=== PATIENT | male | born 1960 | race Caucasian/White ===

== ENCOUNTER 2018-06-08 10:49 | Emergency (ER) | payer MEDICAID, SELFPAY ==
[2018-06-08 11:14] VITALS: BP 132/82; PULSE 79; RESP 18; TEMP 36.7; O2SAT 97
--- NOTE | 2018-06-08 11:38 | W.ED.GENAD ---
Discharge Plan Disposition Patient Disposition: HOME Condition: Fair Discharge Details Chief Complaint: Orthopedic Clinical Impression: Radial collateral ligament sprain Primary Care Provider: WAYNE KIRBY ED Provider: Selin Ross Home Meds and New Rx's Prescriptions: Continue ibuprofen 800 MG tablet 800 mg PO BID RF: 0 omeprazole magnesium [Prilosec OTC] 20 MG tablet,delayed release (DR/EC) 40 mg PO DAILY RF: 0 hydrocodone-acetaminophen 1 EACH tablet 1 ea PO Q4H PRN PRNQty: 10 RF: 0 morphine 15 MG tablet 15 mg PO TID RF: 0 lisinopril 5 mg Tablet RF: 0 Discharge Instructions Instructions: Finger Sprain (ED) Additional Instructions: Encourage rest, ice, elevation. Please continue to pearl tape your fingers until evaluated by orthopedics. Please call to schedule follow up appointment. If you develop new/worsening symptoms please seek care urgently once again. Avoid heavy lifting with this hand. Referrals: Avelino Walter MD [ [facility] STAFF PHYSICIAN] - ([phone]) Discharge Data Discharge Date/Time-TO BE ENTERED AT DEPARTURE: 06/08/18 13:28 Medical Decision Making Patient is a 58 year old RHD male, presenting today with c/c of diminished ROM and pain in the middle finger right digit. States that this began 3 days ago after pushing on his plow frame. He denies any fall or known trauma. History of CTR to affected hand about 10 years ago. Denies altered sesnation. Notes that he is unable to move my finger to the right. On exam, patient has difficulty moving digit to the radial side. No laxity at the DIP or PIP joint, unable to press against resistance radially from the MCP joint. Is able to make a fist but has difficulty doing so, appears to need to realign his digits to have success with this. 2 point intact. Ligamentously intact with flexion and extension. Pain is primarily at the base of the 3rd metacarpal. Will obtain XR to evaluate for possible fracture. XR reviewed by myself with no acute bony abnormality noted. Consulted with Dr. Walter regarding ligamentous injury. He advised pearl tape and follow up with orthopedics in 1-2 weeks. Radiologist reviewed the patient's x-ray and advised that there is some abnormalities in the wrist but nothing acute. No acute fracture. Discussed the findings with the patient. He is not endorsing any wrist pain. No snuffbox tenderness. At this point, we will follow Dr. Walter's recommendation and pearl tape the patient. He has been placed on the fracture list. I encouraged rest, ice, elevation. Tylenol and/or ibuprofen as needed for discomfort. We discussed new/worsening symptoms and when to seek care urgently once again. All of his questions and concerns were addressed and he is in agreement with this plan. HPI General Mode of arrival: ambulatory. Date/Time Provider Initiated Documentation: 06/08/18 11:21. Limitations to Documentation: no limitations. Information obtained by: patient. History of Present Illness 58 year old M presents to the emergency department with the chief complaint of right middle finger pain and diminished ROM, described as moderate, Quality is described as aching, and is localized to the right and upper extremity. Patient reports no radiation. Patient started experiencing this day(s) (3) and it has been constant. No relieving factors improve symptom(s), No exacerbating factors reported . Patient notes weakness (in affected hand); denies cough, fever/chills and rash. Patient did receive the following treatments prior to arrival, none Related Data Home Medications Medication Instructions Recorded Confirmed ibuprofen 800 mg PO BID 12/07/12 06/08/18 omeprazole magnesium [Prilosec OTC] 40 mg PO DAILY 12/07/12 06/08/18 hydrocodone-acetaminophen 1 ea PO Q4H PRN PRN #10 tablet 07/09/13 06/08/18 morphine 15 mg PO TID 12/10/15 06/08/18 lisinopril 06/08/18 Previous Rx's Medication Instructions Recorded hydrocodone-acetaminophen 1 ea PO Q4H PRN PRN #10 tablet 07/09/13 Allergies Allergy/AdvReac Type Severity Reaction Status Date / Time gabapentin AdvReac Intermediate went Unverified 06/08/18 11:18 crazy on it General Stated Complaint: Orthopedic RADHA: 4 Review of Systems Constitutional Reports as per HPI, Denies chills, Denies fever(s), Denies headache(s) and Denies weakness ENT Denies headache(s) Cardiovascular Reports as per HPI Respiratory Reports as per HPI and Denies cough Musculoskeletal Reports as per HPI and Denies tingling Integumentary/Breasts Reports as per HPI, Denies rash and Denies wounds Neurologic Denies headache(s), Denies tingling and Denies weakness [facility] Social History Smoking/Tobacco Use Status: Former Tobacco Use Exam Const General: cooperative, healthy appearing, comfortable, no acute distress, well developed and well groomed Nutritional Appearance: average body habitus and well nourished Orientation: alert and awake Resp Effort & Inspection: normal respiratory effort, able to speak in complete sentences and no respiratory distress Cardio Rate: regular rate Rhythm: regular rhythm Skin General skin exam: no rashes or lesions noted Lesions: no lesions Rashes: no rashes Trauma: no lacerations or abrasions Neuro General: alert and awake Cognition: normal cognition Speech: speech normal Gait: normal gait Motor: tone not normal throughout (Limited range of motion as below) Sensory Exam: no sensory deficits noted Extrem Right upper extremity: normal capillary refill and no joint enlargement; abnormal to inspection (Examination Cecy 70 is significant for ulnar deviation of the middle finger compared to that of the contralateral side. He is unable to deviate radially, no strength in this direction of the middle finger. Full flexion. Full extension. Weakness seems to be at the MCP joint however the patien) and ROM limited Psych Appearance: grossly normal and well kempt Mental Status: mental status grossly normal Speech and Movement: speech and movement normal Course Vital Signs Temperature 36.7 C 06/08/18 11:14 Pulse 79 06/08/18 11:14 Respiratory Rate 18 06/08/18 11:14 Blood Pressure 132/82 06/08/18 11:14 Pulse Oximetry 97 06/08/18 11:14 Temperature 36.7 C 06/08/18 11:14 Temperature Source Skin 06/08/18 11:14 Pulse 79 06/08/18 11:14 Respiratory Rate 18 06/08/18 11:14 Respiratory Effort 06/08/18 11:17 Blood Pressure 132/82 06/08/18 11:14 Blood Pressure Position Sitting 06/08/18 11:14 Pulse Oximetry 97 06/08/18 11:14 Pain Level 2 06/08/18 11:17
--- NOTE | 2018-06-08 11:45 | ED.GENADUL_ITS ---
Discharge Plan Disposition Patient Disposition: HOME Condition: Fair Discharge Details Chief Complaint: Orthopedic Clinical Impression: Radial collateral ligament sprain Primary Care Provider: WAYNE KIRBY ED Provider: Selin Ross Home Meds and New Rx's Prescriptions: Continue ibuprofen 800 MG tablet 800 mg PO BID RF: 0 omeprazole magnesium [Prilosec OTC] 20 MG tablet,delayed release (DR/EC) 40 mg PO DAILY RF: 0 hydrocodone-acetaminophen 1 EACH tablet 1 ea PO Q4H PRN PRNQty: 10 RF: 0 morphine 15 MG tablet 15 mg PO TID RF: 0 lisinopril 5 mg Tablet RF: 0 Discharge Instructions Instructions: Finger Sprain (ED) Additional Instructions: Encourage rest, ice, elevation. Please continue to pearl tape your fingers until evaluated by orthopedics. Please call to schedule follow up appointment. If you develop new/worsening symptoms please seek care urgently once again. Avoid heavy lifting with this hand. Referrals: Avelino Walter MD [ [facility] STAFF PHYSICIAN] - ([phone]) Discharge Data Discharge Date/Time-TO BE ENTERED AT DEPARTURE: 06/08/18 13:28 Medical Decision Making Patient is a 58 year old RHD male, presenting today with c/c of diminished ROM and pain in the middle finger right digit. States that this began 3 days ago after pushing on his plow frame. He denies any fall or known trauma. History of CTR to affected hand about 10 years ago. Denies altered sesnation. Notes that he is unable to move my finger to the right. On exam, patient has difficulty moving digit to the radial side. No laxity at the DIP or PIP joint, unable to press against resistance radially from the MCP joint. Is able to make a fist but has difficulty doing so, appears to need to realign his digits to have success with this. 2 point intact. Ligamentously intact with flexion and extension. Pain is primarily at the base of the 3rd metacarpal. Will obtain XR to evaluate for possible fracture. XR reviewed by myself with no acute bony abnormality noted. Consulted with Dr. Walter regarding ligamentous injury. He advised pearl tape and follow up with orthopedics in 1-2 weeks. Radiologist reviewed the patient's x-ray and advised that there is some abnormalities in the wrist but nothing acute. No acute fracture. Discussed the findings with the patient. He is not endorsing any wrist pain. No snuffbox tenderness. At this point, we will follow Dr. Walter's recommendation and pearl tape the patient. He has been placed on the fracture list. I encouraged rest, ice, elevation. Tylenol and/or ibuprofen as needed for discomfort. We discussed new/worsening symptoms and when to seek care urgently once again. All of his questions and concerns were addressed and he is in agreement with this plan. HPI General Mode of arrival: ambulatory . Date/Time Provider Initiated Documentation: 06/08/18 11:21 . Limitations to Documentation: no limitations . Information obtained by: patient . History of Present Illness 58 year old M presents to the emergency department with the chief complaint of right middle finger pain and diminished ROM, described as moderate, Quality is described as aching, and is localized to the right and upper extremity. Patient reports no radiation. Patient started experiencing this day(s) (3) and it has been constant. No relieving factors improve symptom(s), No exacerbating factors reported . Patient notes weakness (in affected hand); denies cough, fever/chills and rash. Patient did receive the following treatments prior to arrival, none Related Data Home Medications Medication Instructions Recorded Confirmed ibuprofen 800 mg PO BID 12/07/12 06/08/18 omeprazole magnesium [Prilosec OTC] 40 mg PO DAILY 12/07/12 06/08/18 hydrocodone-acetaminophen 1 ea PO Q4H PRN PRN #10 tablet 07/09/13 06/08/18 morphine 15 mg PO TID 12/10/15 06/08/18 lisinopril 06/08/18 Previous Rx's Medication Instructions Recorded hydrocodone-acetaminophen 1 ea PO Q4H PRN PRN #10 tablet 07/09/13 Allergies Allergy/AdvReac Type Severity Reaction Status Date / Time gabapentin AdvReac Intermediate went Unverified 06/08/18 11:18 crazy on it General Stated Complaint: Orthopedic RADHA: 4 Review of Systems Constitutional Reports as per HPI, Denies chills, Denies fever(s), Denies headache(s) and Denies weakness ENT Denies headache(s) Cardiovascular Reports as per HPI Respiratory Reports as per HPI and Denies cough Musculoskeletal Reports as per HPI and Denies tingling Integumentary/Breasts Reports as per HPI, Denies rash and Denies wounds Neurologic Denies headache(s), Denies tingling and Denies weakness [facility] Social History Smoking/Tobacco Use Status: Former Tobacco Use Exam Const General: cooperative, healthy appearing, comfortable, no acute distress, well developed and well groomed Nutritional Appearance: average body habitus and well nourished Orientation: alert and awake Resp Effort & Inspection: normal respiratory effort, able to speak in complete sentences and no respiratory distress Cardio Rate: regular rate Rhythm: regular rhythm Skin General skin exam: no rashes or lesions noted Lesions: no lesions Rashes: no rashes Trauma: no lacerations or abrasions Neuro General: alert and awake Cognition: normal cognition Speech: speech normal Gait: normal gait Motor: tone not normal throughout (Limited range of motion as below) Sensory Exam: no sensory deficits noted Extrem Right upper extremity: normal capillary refill and no joint enlargement; abnormal to inspection (Examination Cecy 70 is significant for ulnar deviation of the middle finger compared to that of the contralateral side. He is unable to deviate radially, no strength in this direction of the middle finger. Full flexion. Full extension. Weakness seems to be at the MCP joint however the patien) and ROM limited Psych Appearance: grossly normal and well kempt Mental Status: mental status grossly normal Speech and Movement: speech and movement normal Course Vital Signs Temperature 36.7 C 06/08/18 11:14 Pulse 79 06/08/18 11:14 Respiratory Rate 18 06/08/18 11:14 Blood Pressure 132/82 06/08/18 11:14 Pulse Oximetry 97 06/08/18 11:14 Temperature 36.7 C 06/08/18 11:14 Temperature Source Skin 06/08/18 11:14 Pulse 79 06/08/18 11:14 Respiratory Rate 18 06/08/18 11:14 Respiratory Effort 06/08/18 11:17 Blood Pressure 132/82 06/08/18 11:14 Blood Pressure Position Sitting 06/08/18 11:14 Pulse Oximetry 97 06/08/18 11:14 Pain Level 2 06/08/18 11:17
--- NOTE | 2018-06-08 11:50 | DI.RAD_ITS ---
SYMPTOMS/DIAGNOSIS: PAIN AND LIMITED RANGE OF MOTION OF MIDDLE DIGIT, PALM PAIN RIGHT HAND: There are severe degenerative changes involving the 1st multangular metacarpal, and inter-multangular and multangular navicular joints. In addition to the above, an increased separation of the navicular and lunate bones would be consistent with a ligamentous interruption. There is no evidence of an acute fracture or dislocation.
[2018-06-08 13:27] VITALS: BP 158/87; PULSE 72; RESP 16; TEMP 36.7
== END 2018-06-08 13:28 | disposition home or self-care (01) ==
PROVIDERS: Emergency Provider Physician Assistant; PCP Family Medicine
DX: S53.431A Radial collateral ligament sprain of right elbow, initial encounter; X50.3XXA Overexertion from repetitive movements, initial encounter
CPT/HCPCS: 99282; 73130

== ENCOUNTER 2019-01-31 14:35 | Outpatient (REF) | payer MEDICAID, SELFPAY ==
[2019-01-31 21:37] LABS: Anion Gap 11.5 mmol/L (3-11); BUN 15 mg/dL (7-18); CO2 25.5 mmol/L (21.0-32.0); CREATININE 0.83 mg/dL (0.70-1.30); Calcium 8.7 mg/dL (8.5-10.1); Calculated LDL 125 mg/dL; Chloride 103 mmol/L (98-107); Cholesterol 181 mg/dL (50-200); Glucose 112 mg/dL (70-100); HDL Cholesterol 48 mg/dL (40-60); Potassium 4.8 mmol/L (3.5-5.1); Sodium 140 mmol/L (136-145); Triglyceride 41 mg/dL (30-150)
[2019-01-31 23:02] LABS: Hemoglobin A1C 5.8 % (4.5-6.2)
== END 2019-01-31 14:55 ==
LOC: NCHCN 14:35
PROVIDERS: PCP Family Medicine; Visit Provider Nurse Practitioner Family
DX: I10 Essential (primary) hypertension (principal); J44.9 Chronic obstructive pulmonary disease, unspecified; R73.9 Hyperglycemia, unspecified; Z13.220 Encounter for screening for lipoid disorders; G89.4 Chronic pain syndrome
CPT/HCPCS: 80048; 80061; 83721; 83036

== ENCOUNTER 2020-06-04 15:16 | Outpatient (REF) | payer MEDICAID, SELFPAY ==
[2020-06-07 17:40] LABS: Patient Race White; SARS-CoV-2 RNA Undetected (Undetected); SARS-CoV-2 Specimen Source Nasal
== END 2020-06-04 15:36 ==
LOC: NCHCN 15:16
PROVIDERS: PCP Family Medicine; Visit Provider Family Medicine
DX: Z20.828 Contact with and (suspected) exposure to other viral communicable diseases (principal)
CPT/HCPCS: U0003

== ENCOUNTER 2021-09-25 15:02 | Outpatient (REF) | payer MEDICAID, SELFPAY ==
[2021-09-25 14:56] LABS: ALT 25 U/L (16-63); AST 14 U/L (15-37); Albumin 3.4 g/dL (3.4-5.0); Alkaline Phosphatase 108 U/L (46-116); BUN 14 mg/dL (7-18); Bilirubin, Total 0.2 mg/dL (0.2-1.0); CREATININE 0.7 mg/dL (0.70-1.30); Calcium 8.3 mg/dL (8.5-10.1); Calculated LDL 112 mg/dL (<100); Chloride 106 mmol/L (98-107); Cholesterol 170 mg/dL (<200); Glucose 119 mg/dL (74-106); HDL Cholesterol 46 mg/dL (40-60); Potassium 4.6 mmol/L (3.5-5.1); Sodium 141 mmol/L (136-145); Total Protein 6.2 g/dL (6.4-8.2); Triglyceride 62 mg/dL (<150)
[2021-09-25 22:44] LABS: PSA, Screening 1.6 ng/mL (0.0-4.5)
== END 2021-09-25 15:03 | disposition home or self-care (01) ==
LOC: NCHCN 15:02
PROVIDERS: PCP Family Medicine; Visit Provider Family Medicine
DX: I10 Essential (primary) hypertension (principal); E78.5 Hyperlipidemia, unspecified; R73.03 Prediabetes; N13.9 Obstructive and reflux uropathy, unspecified; Z12.5 Encounter for screening for malignant neoplasm of prostate
CPT/HCPCS: 80053; 80061; 84153

== ENCOUNTER 2021-11-08 13:58 | Outpatient (REF) | payer MEDICAID, SELFPAY ==
[2021-11-14 14:38] LABS: Amphetamine 161 ng/mL (Cutoff: 25); Amphetamines Interpretation Positive.; MDA (Ecstasy Metabolite) Negative ng/mL (Cutoff: 25); MDMA (Ecstasy) Negative ng/mL (Cutoff: 25); Methamphetamine 184 ng/mL (Cutoff: 25); Phentermine Negative ng/mL (Cutoff: 25); Pseudoephedrine/Ephedrine Negative ng/mL (Cutoff: 25)
== END 2021-11-08 13:59 | disposition home or self-care (01) ==
LOC: NCHCN 13:58
PROVIDERS: PCP Family Medicine; Visit Provider Family Medicine
DX: G89.4 Chronic pain syndrome (principal)
CPT/HCPCS: 80324

== ENCOUNTER 2022-05-13 10:51 | Outpatient (CLI) | payer MEDICAID, SELFPAY ==
--- NOTE | 2022-05-13 10:45 | DI.RAD_ITS ---
Exam(s) XR SHOULDER LT COMPLETE 2+V EXAM: XR SHOULDER LT COMPLETE 2+V CLINICAL HISTORY: LEFT SHOULDER PAIN. TECHNIQUE: 2D digital imaging was performed. COMPARISON: No exams were available for comparison FINDINGS: Two views:: No evidence of fracture or dislocation. There is advanced qtfo-ck-bnyr narrowing of the glenohumeral joint and there is a moderate size osteophyte on the inferior articular surface of humeral head. Mckenzie bacromial space does not appear to contain calcifications. AC joint exhibits mild degenerative robles es. No abnormal soft tissue calcifications. IMPRESSION: Main findings advanced degenerative narrowing of the glenohumeral joint. DATA REPOSITORY: RADIATION DOSE DELIVERED:
== END 2022-05-13 10:52 | disposition home or self-care (01) ==
LOC: DIORS 10:51
PROVIDERS: PCP Family Medicine; Referring Provider Family Medicine; Visit Provider Student in an Organized Health Care Education/Training Program
DX: M19.012 Primary osteoarthritis, left shoulder (principal)
CPT/HCPCS: 73030

== ENCOUNTER 2022-11-24 02:19 | Outpatient (CLI) | payer MEDICAID, SELFPAY ==
--- NOTE | 2022-11-24 07:15 | DI.MRI_ITS ---
Exam(s) MR UPPER JOINT LT WO EXAM: MR UPPER JOINT LT WO CLINICAL HISTORY: PRE SURGICAL PLANNING,arthritis lt glenohumeral joint,m19.012. TECHNIQUE: Multiplanar multisequence MRI was performed. COMPARISON: None. FINDINGS: BONES: There is edema in the humeral head is likely reactive secondary to severe degenerative changes . There is flattening of the humeral head and spurring seen inferiorly. Spurring is also seen at the anterior and posterior aspects of the humeral head. JOINTS:The acromioclavicular joint shows mild spurring and some fluid. The glenohumeral joint shows severe narrowing. TENDONS: Supraspinatus: Unremarkable. Infraspinatus: Unremarkable. Subscapularis: Unremarkable. Teres Minor: Unremarkable. Biceps and Independence: Unremarkable. MUSCLES: Unremarkable. GLENOID LABRUM: Severe degenerative changes. SOFT TISSUES: A large ossification is noted at the inferior glenohumeral joint. Smaller ossification seen beneath the coracoid process. Fluid seen along the biceps tendon. Fluid seen on the subcoraco id region and around subscapularis tendon. OTHER: Subacromial and subdeltoid bursae show minimal fluid.. IMPRESSION: Severe degenerative changes of the glenohumeral joint. Large ossification seen at the inferior gleno humeral joint space. Smaller ossification seen at the subcoracoid bursa. No evidence of rotator cuf f tear or significant muscle atrophy. DATA REPOSITORY:
--- NOTE | 2022-11-24 07:16 | DI.CT_ITS ---
Exam(s) CT UPPER EXTREMITY LT WO EXAM: CT UPPER EXTREMITY LT WO CLINICAL HISTORY: PRE SURGICAL PLANNING,arthritis lt glenohumeral joint, m19.012 TECHNIQUE: Imaging Protocol: Axial computed tomography images with coronal and sagittal reformatted images were created and reviewed. CONTRAST MATERIAL: None COMPARISON: MR MR UPPER JOINT LT WO from 11/24/2022 FINDINGS: No evidence of acute fracture or dislocation. The main finding here is advanced osteoarthritic narrowing [id number] of the glenohumeral joint and there are also opposing prominent osteophytes on the inferior articular surfaces the humeral head an d osseous glenoid. There is also a partially calcified loose body in the inferior recess just above the inferior glenohumeral ligament, seen on recent MRI study. This measures approximately 2 x 1.4 cm . There is mild diminution of the subacromial space but no calcifications within the subacromial space. The AC joint appears unremarkable. IMPRESSION: Advanced osteoarthritic degenerative changes in the glenohumeral joint. RADIATION DOSE DELIVERED: 633.12mGy.cm Total DLP DATA REPOSITORY: All CT scans at this facility are submitted to the National Radiology Data Registry (NRDR) Dose Index Registry (DIR) with the [employer] (A[employer]). RADIATION OPTIMIZATION: All CT scans at this facility use at least one of these dose optimization te chniques: automated exposure control; mA and/or kV adjustment per patient size (includes targeted exa ms where dose is matched to clinical indication); or iterative reconstruction.
== END 2022-11-24 02:39 ==
PROVIDERS: PCP Family Medicine; Visit Provider Student in an Organized Health Care Education/Training Program
DX: M19.012 Primary osteoarthritis, left shoulder (principal)
CPT/HCPCS: 73200; 73221

== ENCOUNTER 2022-12-26 06:03 | Day surgery (SDC) | payer MEDICAID, SELFPAY ==
[2022-12-26] VITALS (10 sets, daily range): BP systolic 117–161; BP diastolic 71–87; PULSE 54–69; RESP 9–18; TEMP 36.4–36.7; O2SAT 94–99; BMI 23.5
--- NOTE | 2022-12-26 06:25 | PDOC.DSDIS_ITS ---
Date of service: 12/26/22 Time of Service: 14:00 Discharge Plan Disposition Patient Disposition: Home Discharge Details Attending Provider: Benjamín Hernández Primary Care Provider: Padmini Dye Home Meds and New Rx's Prescriptions: New aspirin 81 mg tablet,delayed release (DR/EC) 81 mg PO DAILY 14 Days Qty: 14 0RF oxycodone-acetaminophen [Percocet] 5-325 mg tablet 1 - 2 tab PO Q4H MDD 30 mg PRN (Reason: Moderate to severe pain) Qty: 18 0RF naproxen 250 mg tablet 250 - 500 mg PO BID PRNQty: 40 0RF Rx Instructions: take with a meal Continued albuterol 90 mcg/actuation aerosol 90 mcg inhalation DIRECTED lisinopril-hydrochlorothiazide 10-12.5 mg tablet 1 tab PO DAILY omeprazole magnesium [Prilosec OTC] 20 MG tablet,delayed release (DR/EC) 40 mg PO DAILY morphine 15 MG tablet 15 mg PO TID Discontinued ibuprofen 800 mg tablet 800 mg PO TID PRN Discharge Instructions Additional Instructions: Surgery: Left anatomic total shoulder arthroplasty with biceps tenodesis Activity: Do not lift anything heavier than a coffee. You should keep your arm at your side in a neutral position at all times except for gentle range of motion exercises, physical therapy, and essential activities. You should use the sling whenever you are out of the house. You may have to adjust the abduction pillow or remove it for comfort. At home it is best to remove the sling and rest the arm on a pillow at your side or support the operative side with your other hand. A physical therapy prescription will be sent electronically to start in about 3 weeks. Anatomic TSA Protocol: Postoperative Weeks 0-6 ?Immobilization: Sling may be removed for therapeutic exercises, resting in bed or chair, and bathing ?Motion exercises: Pendulum exercises, elbow range- of-motion exercises, wrist imyod-ir-fkwryh exercises, and supervisory training specialist strengthening ?Restrictions: No active internal rotation or backwards extension Postoperative Weeks 6-12 ?Immobilization: Sling discontinued ?Motion exercises: Shoulder passive range of motion, advancing to active- assisted range of motion, and finally active range of motion with a goal of forward flexion to 90? and external rotation of 20? ?Strengthening exercises: Light, resisted forward flexion, external rotation, and abduction limited to isometric exercises and therapy bands with concentric motions only. Continue supervisory training specialist strengthening ?Restrictions: No resisted internal rotation or backwards extension. No scapular retraction exercises with therapy bands Postoperative Months 3-12 ?Motion exercises: Increase vdqka-zz-[id number] exercises to achieve full motion, with passive stretching at end ranges ?Strengthening: Begin resisted, internal rotation and backwards extension initially with isometric exercises advancing to light therapy bands and then weights. Advance other shoulder strengthening exercises to include the rotator cuff, deltoid, and scapular stabilizers. Advance to functional strengthening, including plyometric exercises and core strengthening. Prescriptions: Aspirin 81 mg take 1 daily to prevent a blood clot for 2 weeks Naproxen 250 mg take 1-2 every 12 hours with a meal as needed for moderate pain Oxycodone 5 mg take 1-2 every 4-6 hours as needed for severe pain You may use qjxb-woh-uqydozq Tylenol (acetaminophen) as needed for mild pain. These pain medications may be taken all at once or in different combinations as needed. Also, recommend Colace (docusate) as a stool softener as surgery and pain medicine cause constipation. You may try wkzq-jbv-zspccai diphenhydramine (Benadryl) 25-50 mg nightly as a sleep aid Dressings: Leave dressing in place until follow-up. Keep clean and dry at all times. No showers please. Follow-up: 10-[address] Hernández You may take off the leg compression stockings this evening at home. You may also leave them on a few days longer if you have a history of leg swelling or edema. Please call the office during business hours with any questions or concerns. Let us know right away if you develop any redness, drainage, fevers, chest pain, or trouble breathing. Do not drink alcohol or drive for at least 24 hours after anesthesia. Stand Alone Forms: Anesthesia Discharge Inst., Anes.Nerve Block Instructions, Enrique Hopkins (DSU) DS: Diagnosis Discharge Diagnosis (1) Arthritis of left glenohumeral joint: Status: Acute
[2022-12-26] MEDS: Lactated Ringers 1,000 ML 30 ML IV (06:50)
--- NOTE | 2022-12-26 06:58 | W.ANESPRE ---
General Info Date of Service Date Performed: 12/26/22 Height: 5 ft 6 in Weight: 66 kg Body Mass Index (BMI): 23.5 Surgical Procedure: Operation Date: 12/26/22 07:40 Proposed Procedure Side Surgeon p Shoulder Anatomic Total Arthroplasty, Biceps Tenodesis, any other indicated procedures Left Benjamín Hernández MD Meds Allergies and Home Medications Allergies Allergy/AdvReac Type Severity Reaction Status Date / Time gabapentin AdvReac Intermediate went Unverified 12/26/22 06:17 crazy on it pregabalin AdvReac Intermediate Agitation Verified 12/26/22 06:17 tramadol AdvReac Intermediate Agitation Verified 12/26/22 06:17 Home Medication Medication Instructions Recorded omeprazole magnesium 20 mg 40 mg PO DAILY 12/07/12 tablet,delayed release (Prilosec OTC) morphine 15 mg immediate release 15 mg PO TID 12/10/15 tablet albuterol 90 mcg/actuation aerosol 90 mcg inhalation DIRECTED 05/13/22 inhaler lisinopril 10 1 tab PO DAILY 09/03/22 mg-hydrochlorothiazide 12.5 mg tablet Current Visit Medications: Current Medications Generic Name Dose Route Start Last Admin Trade Name Freq PRN Reason Stop Dose Admin Ringer's Solution 1,000 mls @ 30 mls/hr 12/26/22 06:00 IV 12/26/22 16:00 INFUSION CHERRIE Cefazolin Sodium/Dextrose 2 gm in 50 mls @ 100 mls/hr 12/26/22 06:00 Ancef Duplex IVPB 12/26/22 23:59 PREOP CHERRIE Tranexamic Acid 1,000 mg/ 60 mls @ 360 mls/hr 12/26/22 06:00 Sodium Chloride IVPB 12/26/22 16:00 PREOP CHERRIE Cefazolin Sodium/Dextrose 1 gm in 50 mls @ 100 mls/hr 12/26/22 11:30 Ancef Duplex IVPB 12/26/22 11:59 ONCE ONE IV Miscellaneous Supplies 1 each 12/26/22 06:00 Iv Access IV 12/26/22 23:59 DIRECTED CHERRIE Lactobacillus Acidophilus/Casei 1 cap 12/26/22 12:30 L. Acidophilus, Casei, Rhamnosus Cap PO 01/25/23 12:29 DAILY CHERRIE Oxycodone HCl 5 - 10 mg 12/26/22 06:22 Oxycodone 5 Mg Tab PO 01/25/23 06:21 Q4H PRN PRN Sodium Chloride 0 ml 12/26/22 06:00 Normal Saline Flush 10 Ml Syr IV 12/26/22 23:59 PRN PRN Sodium Chloride 0 ml 12/26/22 06:00 Normal Saline 10 Ml Vial IJ 12/26/22 23:59 DIRECTED PRN Sterile Water 0 ml 12/26/22 06:00 Water,Injection,Sterile 10 Ml Vial IJ 12/26/22 23:59 DIRECTED PRN PFSH Active Problems Active Problems: Problem Status Onset Code Injury of right hand S69.91XA Arthritis of left glenohumeral joint M19.012 Left carpal tunnel syndrome G56.02 Prediabetes R73.03 Hypertension I10 Medical History Medical History Adjustment disorder Chronic pain syndrome COPD (chronic obstructive pulmonary disease) Depression Former smoker GERD (gastroesophageal reflux disease) Hyperlipidemia Renal calculus Spinal stenosis Medical History Comments:: Pt. states his BP medication causes him to have really BP 85/55, 89/55. If he stops he's 110-70, states he is more stable without it. Pt. instructedto F/U with his PCP on this medication Surgical History Surgical History (Updated 12/26/22 @ 06:37 by Lisa Atkinson RN) H/O colonoscopy Tobacco Smoking/Tobacco Use Status: Former Tobacco Use Alcohol Alcohol Intake: never Substance Use Substance use: Occasionally Substance use type: marijuana Details: marijuana last used 12/25/22, couple of puffs Vital Signs and Lab Results Vital Signs Most Recent Vital Signs in EMR: Most Recent Vital Signs Temp Pulse Resp BP Pulse Ox 36.7 C 65 18 120/82 98 12/26/22 06:26 12/26/22 06:26 12/26/22 06:26 12/26/22 06:26 12/26/22 06:26 Lab Results Blood Type / Crossmatch: No Data to Display Complete Blood Count: No Data to Display Complete Metabolic Panel: No Data to Display Liver Function Panel: No Data to Display Coagulation Panel: No Data to Display Cardiac Panel: No Data to Display Arterial Blood Gas: No Data to Display Venous Blood Gas: No Data to Display Pancreas Panel: No Data to Display Thyroid Panel: No Data to Display Infectious Disease: No Data to Display Blood Cultures: No Data to Display Toxicology Panel: No Data to Display Imaging and Studies Imaging and Studies Study information below may be from another EMR and interpreted by another provider. Please see original notes in EMR for more complete details. Pulmonary Function Summary: 09/29/2015: INTERPRETATION SPIROMETRY: Spirometry shows no evidence of obstructive airways disease. There is no bronchodilator testing carried out. LUNG VOLUMES: Lung volumes show no evidence of restriction. DIFFUSION CAPACITY: Normal. AIRWAY RESISTANCE: Normal. IMPRESSION: Overall normal pulmonary function study. Clinical correlation recommended. Anesthesia Assessment and Plan Anesthesia History Personal History: No History of Anesthesia Complications Family History: No Family History of Anesthesia Complications Exercise Tolerance Exercise Tolerance: Metabolic Equivalents>4 Pertinent Negatives Pertinent Negatives: No Symptoms of GERD, No Major Cardiovascular Symptoms or Complaints and No Major Pulmonary Symptoms or Complaints Cardiac & Pulmonary Exam Cardiac Exam: Normal S1/S2 Heart Sounds Pulmonary Exam: Clear Bilateral Breath Sounds Implantable Cardiac Device Does patient have a Pacemaker or an ICD?: No Airway Exam Known Difficult Airway: No Mallampati Class: 1 Mouth Opening: Normal (> 3cm) Thyromental Distance: Greater than 3 cm Facial Hair: Full Aragon Neck Range of Motion: Full ROM Neck Circumference: Normal Teeth Condition: Removable Dentures/Plates Upper and Edentulous ASA Classification ASA Score: ASA 2 Emergency Case?: No NPO Status NPO Status: NPO Clears >2 hours, Solids >8 hours Anesthesia Plan Resuscitation Status: Full Code Anesthesia Technique: General Anesthesia Airway Planned: Endotracheal Tube Pain Management: Surgeon and patient request nerve block Monitors Used: Standard Monitors and SedLine
[2022-12-26] MEDS: ceFAZolin 2 GM/50 ML BAG IVPB ×2 (08:11→11:14)
--- NOTE | 2022-12-26 08:36 | W.ANESNERVE ---
Nerve Block Single Injection Procedure Date and Time Date Performed: 12/26/22 Procedure Start: 07:10 Location Where Procedure Performed Procedure Location: Day Surgery Unit Reason Performed: Postoperative Analgesia Requesting Provider: Benjamín Hernández Timeout Performed Timeout Performed: Yes Monitoring Used ECG, Blood Pressure, SpO2 and See EMR for corresponding vital signs Sterility Sterility: Hand Hygiene, Surgical Cap, Surgical Mask, Sterile Gloves and Chlorhexidine Sedation Given During Procedure Sedation Given (Indicate Dose Given): Versed IV Dose:: 2mg Patient Mental Status Patient Mental Status: Awake Nerve Block 1st Nerve Block: Laterality: Left Block Type: Interscalene Ultrasound Image Saved?: Yes Needle / Catheter Used: 100mm SonoPlex II Local Anesthetic Bolus (Indicate Dose Given): Lidocaine used for local infiltration of skin, Injected in 3-5ml increments after negative blood aspiration, Bupivacaine 0.5% Dose:: 15mL and Exparel Dose:: 10mL Additives (Indicate Dose Given): None Ultrasound: Sterile probe cover and gel used Nerve Stimulator: Supplement to Ultrasound use and No twitch or parasthesia noted < 0.5 mA Paresthesia: None Procedure Tolerated: No Complications Procedure Outcome: Successful Performed By: Etsher Cyr
--- NOTE | 2022-12-26 12:45 | ROE_ITS ---
Date of service: 12/26/22 Time of Service: 07:30 Operative Note Operative Note DATE OF PROCEDURE: 12/26/22 PRE-OP DIAGNOSIS: Left: 1. End-stage glenohumeral arthritis 2. Long head of the biceps tendinopathy POST-OP DIAGNOSIS: same PROCEDURE: Left: 1. Anatomic total shoulder arthroplasty, CPT # [address] 2. Open biceps tenodesis, CPT # 21006 The assistant operator was medically required as this procedure involves retraction, protection of neurovascular structures, and manipulation of multiple instruments and implants at the same time, which cannot be done without a skilled assistant operator. SURGEON: Benjamín Hernández KAIAWHINA KURA [place] MAORI: Natasha Hinojosa ANESTHESIA TYPE: Local By Surgeon, General LMA/ETT and Primary Nerve Block Refer to Anesthesia Record ESTIMATED BLOOD LOSS: 75 PATHOLOGY: none sent COMPLICATIONS: None Patient was transported to: PACU Patient's condition: stable Implants: Arthrex glenoid- VaultLock, medium humerus- Eclipse 45mm trunnion, small cage screw, with 45/17mm head Indications: Please see complete medical record for details. Findings: Significant long head biceps tenosynovitis, anterior capsular contracture, intact subscapularis and superior rotator cuff, and complete glenohumeral cartilage loss with deformity.] Procedure Description: In the operating room, general anesthesia was induced. The patient was positioned beachchair on the operating room table. All bony prominences were well-padded. Preoperative antibiotics were administered. The shoulder was prepped and draped in the usual sterile fashion for shoulder arthroplasty. The correct patient, procedure, and side of the procedure were all verified prior to incision. The deltopectoral approach was preinjected with local anesthetic containing epinephrine and taken to the anterior shoulder. Care was taken to bluntly dissect the interval between the deltoid and pectoralis major muscles and to identify the cephalic vein within its fat stripe. The the vein was mobilized laterally. Subdeltoid space and conjoined tendon were freed of adhesions. The long head of the biceps tendon was identified just lateral to the lesser tuberosity. The uppermost margin of the pectoralis major tendon was released from the proximal humerus. The long head of the biceps tendon was tenodesed in situ using SutureTape in a [id number] fashion securing it superior margin the pectoralis major tendon. The biceps tendon was amputated high at the superior aspect of the bicipital groove and this tendon remnant retained for later augmentation with the subscapularis repair. The remainder of the biceps was followed proximally to identify the rotator interval. A subscapularis peel was performed taking care to release the entire tendon in a full-thickness fashion from superior to inferior and lateral to medial while bringing the arm gradually into external rotation. Care was taken to avoid the axillary nerve by only working on the bone inferiorly and medially. The subscapularis was tagged using SutureTape in a Abel-Troy fashion and traction used confirm appropriate mobilization of the subscapularis tendon after gentle blunt dissection was used to free up the space anterior and posterior to it. The supraspinatus and infraspinatus were identified and largely intact. Appropriate coagulation was achieved especially interiorly. The anatomic neck was cut using an oscillating saw with the humeral head bone brought back table in case there was a need for future bone grafting. The Eclipse trunnion sizer and cage reamer were placed appropriately by hand and then removed. The proximal humeral protection plate was then applied. Attention was then turned to the glenoid and retractors were placed and a circumferential release performed using the long head of the biceps remnant to remove soft tissue about the glenoid rim. Care was taken inferiorly to work on bone only between 5 and 7:00 o'clock and bluntly elevate tissues inferiorly. The VIP guide was omitted given the excellent glenoid exposure and medium glenoid fitting nicely as templated. The guidepin was inserted through this glenoid and engaged in the far cortex. The glenoid reamer was done taking care to remove only as much bone as necessary, mostly anteriorly and inferiorly to mildly correct version, but only just scraped the bone superiorly and posteriorly. The cannulated drill was done over the wire and removed. Glenoid preparation was completed through the jig establishing the superior peg and inferior keg. The trial seated appropriately. High viscosity bone cement was prepared on the back table, placed in a 10 cc Rayna syringe, and used to pressurize the superior and inferior fixation points. A small amount of cement was placed on these parts of the backside of the glenoid and bone from the humeral head placed on the central peg. Unfortunately, the cement hardened completely within 7 minutes and the glenoid could not be impacted. The cement was removed majority from the prepared glenoid. To confirm appropriate removal of the drill glenoid guide was replaced, and the superior and inferior slots redrilled, and then a curette used to completely remove the cement except for the tiniest amount inferiorly. Medium viscosity cement was then prepared on the back table and similarly placed in the syringed for pressurizing the superior and inferior fixation points, appropriately placed in the backside of a new glenoid component, and bone again placed over the central peg. This glenoid was successfully impacted fully onto the glenoid surface with excellent fixation strength. A small amount of extra bone cement was removed from posteriorly. It was maintained in position until the cement was completely hardened at about 18 minutes. Attention was then turned back to the proximal humerus, which was delivered from the wound and maintained in external rotation. The 43 and 45 mm trunnion's were trialed with the 45 mm showing the best compromise of superior inferior medial lateral fit over the cortical rim without being too large. The central wire was drilled through the guide taking care to not penetrate the far cortex and measured a small cage screw. The subscapularis repair was set up with 4 suture tapes drilled through the bicipital groove and inferiorly to the lesser tuberosity and the needles placed through the cancellous bone on the medial aspect of the bone cut. The final trunnion was impacted in place followed by the cage screw with good fixation strength. The trial humeral head was applied, shoulder reduced and taken through range of motion. There was good stability with about 25-50% posterior translation, excellent bounce back, and appropriate positioning through range of motion past 60 degrees internal rotation, and no impingement with full adduction at the side. The trial humeral head was removed, final humeral head impacted. Final reduction and trialing done confirming appropriate range of motion and stability. The shoulder was copiously irrigated with Betadine and normal saline. Vancomycin powder was distributed deeply about the shoulder and through subcutaneous tissues. The arm was placed in about 30 degrees of external rotation. The subscapularis was reduced and repaired using the 4 pairs of StureTape in simple side?to side fashion with good tissue coverage and repair. The biceps tendon remnant was brought up lateral adjacent to this repair stopping at the superior aspect bicipital groove and incorporated into a soft tissue repair with additional suture tape involving the mid to upper portion of the subscapularis, biceps tendon, and adjacent supraspinatus. Additionally, the lateral rotator interval was closed with [id number] suture tape bringing together the upper margin subscapularis laterally with the anterior edge of the supraspinatus nicely. The arm was taken into more external rotation without any displacement of the subscapularis repair. The deltopectoral interval was reapproximated with 0?Vicryl burying the cephalic vein, which had been partially coagulated as it had a small tear from a vessel on its mid?substance. Subcutaneous tissue was irrigated then closed using 2-0 Monocryl in a buried interrupted fashion. Skin was closed using 3-0 Monocryl in a buried subcuticular fashion. Skin glue was applied to the incision. A silver impregnated bandage was placed over the incision. The extremity was placed into a shoulder immobilizer. The patient awoke from anesthesia without complication and was taken to the recovery room in stable condition.
--- NOTE | 2022-12-26 13:10 | DI.RAD_ITS ---
Exam(s) XR SHOULDER LT COMPLETE 2+V EXAM: XR SHOULDER LT COMPLETE 2+V CLINICAL HISTORY: Shoulder arthritis. TECHNIQUE: 2D digital imaging was performed of the left shoulder. Three images were obtained. AP, Grashey, and Y views were obtained. COMPARISON: CR XR SHOULDER LT COMPLETE 2+V from 05/13/[address] UPPER EXTREMITY LT WO from 11/24/2022 FINDINGS: BONES: No acute fracture is present. No bony destructive lesion is seen. JOINTS: No dislocation present. The patient is now status post left total shoulder replacement. The orthopedic hardware appears in good position. SOFT TISSUE: Postsurgical changes are seen in the soft tissues. IMPRESSION: Status post left total shoulder replacement. DATA REPOSITORY: RADIATION DOSE DELIVERED:
[2022-12-26] MEDS: oxyCODONE 5 MG TAB PO (13:58)
--- NOTE | 2022-12-26 14:21 | W.ANESPOSTOP ---
Postoperative Evaluation Date, Time and Location Date Performed: 12/26/22 Time Performed: 14:21 Patient Location: Day Surgery Unit Vital Signs Most Recent Imported Vital Signs: Most Recent Vital Signs Temp Pulse Resp BP Pulse Ox 36.7 C 55 L 16 154/83 H 96 12/26/22 13:10 12/26/22 13:10 12/26/22 13:10 12/26/22 13:10 12/26/22 13:10 Pain Score Most Recent Pain Score: Most Recent Pain Score Pain Level 5 12/26/22 13:58 Assessment Mental Status: Awake (Alert & Oriented to Patient Baseline) Airway and Respiratory Function: Patent airway with normal (patient baseline) respiratory exam Cardiovascular Function: Hemodynamically Stable Hydration Status: Adequately Hydrated Nausea & Vomiting: No Nausea or Vomiting Pain: Pain is tolerable per patient (Moderate amount of left pectoralis pain) Peripheral Nerve Block: Regional nerve block not resolved at time of post operative discharge
== END 2022-12-26 14:54 | disposition home or self-care (01) ==
PROVIDERS: PCP Family Medicine; Visit Provider Student in an Organized Health Care Education/Training Program
PROC: (CPT 23472; principal; 2022-12-26 07:30)
DX: M19.012 Primary osteoarthritis, left shoulder (principal); M75.22 Bicipital tendinitis, left shoulder; R73.03 Prediabetes; I10 Essential (primary) hypertension; K21.9 Gastro-esophageal reflux disease without esophagitis; J44.9 Chronic obstructive pulmonary disease, unspecified
CPT/HCPCS: 23472; 76942; 73030; J0690; J1100; J2250; J2371; J2405; J2704; J3010; J3475

== ENCOUNTER 2023-01-07 09:20 | Outpatient (CLI) | payer MEDICAID, SELFPAY ==
--- NOTE | 2023-01-07 09:26 | DI.RAD_ITS ---
Exam(s) XR SHOULDER LT COMPLETE 2+V EXAM: XR SHOULDER LT COMPLETE 2+V CLINICAL HISTORY: left shoulder f/u. TECHNIQUE: 2D digital imaging was performed. Two images were obtained. AP and Y views were obtained . COMPARISON: CR XR SHOULDER LT COMPLETE 2+V from 12/26/2022 FINDINGS: BONES: There are stable post operative changes present. No fracture or dislocation. JOINTS: The orthopedic hardware is in good position. No evidence of hardware loosening. SOFT TISSUE: Normal. IMPRESSION: Stable postoperative changes. DATA REPOSITORY: RADIATION DOSE DELIVERED:
== END 2023-01-07 09:21 | disposition home or self-care (01) ==
LOC: DIORS 09:20
PROVIDERS: PCP Family Medicine; Referring Provider Family Medicine; Visit Provider Student in an Organized Health Care Education/Training Program
DX: M19.012 Primary osteoarthritis, left shoulder (principal); Z98.890 Other specified postprocedural states
CPT/HCPCS: 73030

== ENCOUNTER 2023-02-04 10:13 | Outpatient (CLI) | payer MEDICAID, SELFPAY ==
--- NOTE | 2023-02-04 10:00 | DI.RAD_ITS ---
Exam(s) XR SHOULDER LT COMPLETE 2+V EXAM: XR SHOULDER LT COMPLETE 2+V CLINICAL HISTORY: left shoulder f/u. TECHNIQUE: 2D digital imaging was performed. Six views. COMPARISON: CR XR SHOULDER LT COMPLETE 2+V from 12/26/2022 CR XR SHOULDER LT COMPLETE 2+V from 01/07/2023 FINDINGS: BONES: There has been no change in alignment of the total shoulder prosthesis given differences in pr ojection. No acute fracture is present. No bony destructive lesion is seen. JOINTS: No dislocation present. SOFT TISSUE: Mild soft tissue calcification at the medial proximal humeral neck. IMPRESSION: Stable postsurgical changes. DATA REPOSITORY: RADIATION DOSE DELIVERED:
== END 2023-02-04 10:14 | disposition home or self-care (01) ==
LOC: DIORS 10:13
PROVIDERS: PCP Family Medicine; Referring Provider Family Medicine; Visit Provider Student in an Organized Health Care Education/Training Program
DX: M19.012 Primary osteoarthritis, left shoulder (principal); Z47.1 Aftercare following joint replacement surgery; Z96.612 Presence of left artificial shoulder joint
CPT/HCPCS: 73030

== ENCOUNTER 2023-03-18 10:15 | Outpatient (CLI) | payer MEDICAID, SELFPAY ==
--- NOTE | 2023-03-18 10:29 | DI.RAD_ITS ---
Exam(s) XR SHOULDER LT COMPLETE 2+V EXAM: XR SHOULDER LT COMPLETE 2+V CLINICAL HISTORY: left shoulder f/u. TECHNIQUE: 2D digital imaging was performed of the left shoulder. Two images were obtained. AP and Y views were obtained. COMPARISON: CR XR SHOULDER LT COMPLETE 2+V from 02/04/2023 FINDINGS: BONES: No acute fracture is present. No bony destructive lesion is seen. JOINTS: No dislocation present. There are stable postsurgical changes of a left shoulder replacement. The orthopedic hardware appears in good position. No suspicious lucencies are seen in or about the orthopedic hardware. The acromioclavicular joint appears unremarkable. SOFT TISSUE: Normal. IMPRESSION: Stable left shoulder replacement. DATA REPOSITORY: RADIATION DOSE DELIVERED:
== END 2023-03-18 10:16 | disposition home or self-care (01) ==
LOC: DIORS 10:16
PROVIDERS: PCP Family Medicine; Referring Provider Family Medicine; Visit Provider Student in an Organized Health Care Education/Training Program
DX: Z47.1 Aftercare following joint replacement surgery (principal); Z96.612 Presence of left artificial shoulder joint
CPT/HCPCS: 73030

== ENCOUNTER 2023-06-09 20:20 | Outpatient (REF) | payer MEDICAID, SELFPAY ==
[2023-06-09 16:03] LABS: HCT 44.9 % (40.0-50.0); HGB 15.3 g/dL (13.5-17.5); MCH 31.5 pg (27.0-33.0); MCHC 34.1 % (32.0-36.0); MCV 92 fL (80-95); MPV 9.5 fL (8.0-11.0); Platelet Count 345 10^3/uL (130-400); RBC 4.86 10^6/uL (4.36-5.78); RDW 12.1 % (11.8-14.1); RDW-SD 41.6 fL; WBC 6.16 10^3/uL (4.4-10.8)
[2023-06-09 16:34] LABS: ALT 27 U/L (16-63); AST 17 U/L (15-37); Albumin 3.7 g/dL (3.4-5.0); Alkaline Phosphatase 122 U/L (46-116); Anion Gap 6.2 mmol/L (3-11); BUN 11 mg/dL (7-18); Bilirubin, Total 0.3 mg/dL (0.2-1.0); CO2 24.8 mmol/L (21.0-32.0); CREATININE 0.8 mg/dL (0.70-1.30); Calcium 8.9 mg/dL (8.5-10.1); Calculated LDL 127 mg/dL (<100); Chloride 106 mmol/L (98-107); Cholesterol 189 mg/dL (<200); Estimated GFR 98.83 (mL/min/1.73m2); Glucose 116 mg/dL (74-106); HDL Cholesterol 55 mg/dL (40-60); Potassium 4.3 mmol/L (3.5-5.1); Sodium 137 mmol/L (136-145); Total Protein 6.7 g/dL (6.4-8.2); Triglyceride 36 mg/dL (<150)
[2023-06-09 16:52] LABS: Vitamin D 25 Total 13.2 ng/mL (30-100)
== END 2023-06-09 20:21 | disposition home or self-care (01) ==
LOC: NCHCN 20:20
PROVIDERS: PCP Family Medicine; Visit Provider Family Medicine
DX: R73.03 Prediabetes (principal); I10 Essential (primary) hypertension; E78.5 Hyperlipidemia, unspecified
CPT/HCPCS: 80053; 80061; 82306; 85027

== ENCOUNTER 2023-06-17 13:18 | Outpatient (CLI) | payer MEDICAID, SELFPAY ==
--- NOTE | 2023-06-17 09:30 | DI.RAD_ITS ---
Exam(s) XR SHOULDER LT COMPLETE 2+V EXAM: XR SHOULDER LT COMPLETE 2+V CLINICAL HISTORY: F/U LEFT TSA. TECHNIQUE: 2D digital imaging was performed. Three images were obtained. Grashey, Y and axillary vi ews were obtained. COMPARISON: CR XR SHOULDER LT COMPLETE 2+V from 03/18/2023 FINDINGS: BONES: There are stable post operative changes of a left shoulder replacement present. No fracture o r dislocation. JOINTS: The orthopedic hardware is in good position. No evidence of hardware loosening. SOFT TISSUE: The visualized lungs are clear. IMPRESSION: Stable postoperative changes. DATA REPOSITORY: RADIATION DOSE DELIVERED:
== END 2023-06-17 13:19 | disposition home or self-care (01) ==
LOC: DIORS 13:18
PROVIDERS: PCP Family Medicine; Visit Provider Student in an Organized Health Care Education/Training Program
DX: Z47.1 Aftercare following joint replacement surgery (principal)
CPT/HCPCS: 73030

== ENCOUNTER 2024-01-05 13:43 | Outpatient (CLI) | payer MEDICAID, SELFPAY ==
--- NOTE | 2024-01-05 10:48 | DI.RAD_ITS ---
Exam(s) XR SHOULDER LT COMPLETE 2+V EXAM: XR SHOULDER LT COMPLETE 2+V CLINICAL HISTORY: F/U LEFT TSA. TECHNIQUE: 2D digital imaging was performed. COMPARISON: CR XR SHOULDER LT COMPLETE 2+V from 06/17/2023 FINDINGS: 3 views Stable satisfactory appearance and alignment of the components of the shoulder prosthesis. No fractu re nor loosening evident. IMPRESSION: Stable satisfactory appearance DATA REPOSITORY: RADIATION DOSE DELIVERED:
== END 2024-01-05 13:44 | disposition home or self-care (01) ==
LOC: DIORS 13:52
PROVIDERS: PCP Family Medicine; Visit Provider Student in an Organized Health Care Education/Training Program
DX: Z47.1 Aftercare following joint replacement surgery (principal); Z96.612 Presence of left artificial shoulder joint
CPT/HCPCS: 73030

== ENCOUNTER 2024-12-27 10:26 | Outpatient (CLI) | payer MEDICARE, MEDICAID, SELFPAY ==
--- NOTE | 2024-12-27 10:00 | DI.RAD_ITS ---
Exam(s) XR SHOULDER LT COMPLETE 2+V EXAM: XR SHOULDER LT COMPLETE 2+V CLINICAL HISTORY: F/U LEFT TSA. TECHNIQUE: 2D digital imaging was performed. COMPARISON: CR XR SHOULDER LT COMPLETE 2+V from 02/04/2023 CR XR SHOULDER LT COMPLETE 2+V from 03/18/2023 CR XR SHOULDER LT COMPLETE 2+V from 06/17/2023 CR XR SHOULDER LT COMPLETE 2+V from 01/05/2024 FINDINGS: Four views There is continued stable appearance of the prosthesis. No fracture or loosening evident. On the ax ial image there is a semi lunar thin density in the soft tissues; not new. This was evident on the p rior images of January 2023. IMPRESSION: Stable appearance. DATA REPOSITORY: RADIATION DOSE DELIVERED:
== END 2024-12-27 10:27 | disposition home or self-care (01) ==
LOC: DIORS 10:26
PROVIDERS: PCP Family Medicine; Visit Provider Student in an Organized Health Care Education/Training Program
DX: M19.012 Primary osteoarthritis, left shoulder (principal); M75.102 Unspecified rotator cuff tear or rupture of left shoulder, not specified as traumatic
CPT/HCPCS: 99213; 73030

== ENCOUNTER → 2025-02-09 10:43 | Outpatient (BNVA) | payer MEDICARE, MEDICAID, SELFPAY | PROVIDERS: PCP Family Medicine; Referring Provider Family Medicine; Visit Provider Surgery | DX: K40.90 Unilateral inguinal hernia, without obstruction or gangrene, not specified as recurrent (principal) | CPT/HCPCS: 99214 ==

== ENCOUNTER 2025-02-28 06:57 | Day surgery (SDC) | payer MEDICARE, MEDICAID, SELFPAY ==
--- NOTE | 2025-02-27 18:01 | W.PM.DSUDISC ---
Date of service: 02/28/25 Discharge Plan Disposition Patient Disposition: Home Condition: Good Discharge Details Reason For Visit: Right inguinal hernia repair Attending Provider: Hermelindo Oneill Primary Care Provider: Padmini Dye Home Meds and New Rx's Prescriptions: Continued albuterol 90 mcg/actuation aerosol 90 mcg inhalation DIRECTED sildenafil 100 mg tablet 100 mg PO DAILY PRN Rx Instructions: administer 30 minutes to 4 hours before activity ibuprofen 800 mg tablet 800 mg PO TID omeprazole magnesium [Prilosec OTC] 20 MG tablet,delayed release (DR/EC) 40 mg PO DAILY morphine 15 MG tablet 15 mg PO TID Discharge Instructions Instructions: Groin Hernia Repair (DC) Additional Instructions: Mulugeta, it was good seeing you today, and I hope you make a quick and uneventful recovery as you transition home. Your hernia repair went very smoothly. We were able to get everything reduced back to its normal position, and repaired the defect with the mesh just as we discussed beforehand. Expect to get some pain over the incision as some of the numbing medications wear off over the next few days. It is fine to use the morphine that you have at home, in addition to Tylenol and ibuprofen to help with pain. Using ice packs over the incision will also be very useful. Expect to get some bruising around the incision site, and maybe even down into the scrotum. That is extremely common, nothing to worry about. You should get up and walk around a little bit, with some basic exercise more more each day. When you are resting, try to stay flat, and keep your pelvis and scrotum around heart level, or even slightly elevated. That will help reduce swelling. If you need anything at all, please do not hesitate to call at any time. Otherwise, we look forward to seeing you in the office on the . 1. Resume all of your regular medications. 2. Use ice packs over the incision to help with pain and swelling. 3. Alternate over the counter tylenol and ibuprofen every 6 hours for the first 2 days, then use as needed. 4. Leave bandage in place for 24 hours, then remove. 5. Shower with warm soapy water. Pat dry. Use a bandaid if needed to protect your clothing. 6. No soaking or tub baths until I see you in the office. 7. No heavy lifting until I see you in the office. 8. Call the office (or go directly to the emergency room after hours) if you notice any of the following: Develop chills (warm to touch), or if you have a thermometer and your temperature is above 101 Difficulty breathing or difficultly swallowing Persistent vomiting Any bleeding ? exceeding one tablespoon 9. Call your physician if the site where your intravenous was started becomes red, swollen, painful, and warm to touch. Stand Alone Forms: Anesthesia Discharge Inst., Enrique Hopkins ([facility]) Referrals: Hermelindo Oneill MD [ [facility] STAFF PHYSICIAN, Surgery] - 03/16/25 11:30 am Activity:: Activity as Tolerated Diet:: As Tolerated Discharge Orders Discharge Orders: Discharge Order (Routine); Ordered 02/27/25 Ordered By: Hermelindo Oneill DS: Diagnosis Discharge Diagnosis (1) Right inguinal hernia: Asessment and Plan: Outpatient postoperative follow-up
--- NOTE | 2025-02-27 18:11 | ROE_ITS ---
Operative Note Operative Note PRE-OP DIAGNOSIS: Right inguinal hernia POST-OP DIAGNOSIS: same PROCEDURE: Open right inguinal hernia repair with mesh SURGEON: Hermelindo Oneill DISPOSAL OPERATOR: Lauren Miner ANESTHESIA TYPE: Local By Surgeon, General LMA/ETT and Other (Ultrasound-guided right inguinal tap block) Refer to Anesthesia Record ESTIMATED BLOOD LOSS: 25 PATHOLOGY: none sent COMPLICATIONS: None Patient was transported to: PACU Patient's condition: stable Implants: Bard PerFix light plug and patch Indications: Troy is a 65-year-old male with symptomatic right inguinal hernia Procedure Description: I met with Mulugeta in the preoperative area, and we reviewed the plan for surgery. He confirmed that the right side was the correct side, and this was marked. Next, we moved back to the operating room and he was assisted onto the OR table. He was padded and supported appropriately. General anesthesia was initiated, and the anesthesia team provided a real-time ultrasound-guided right inguinal tap block. The surgical site was then prepped and draped in the usual fashion. I began by making an oblique incision over the right inguinal region. I dissected down through the skin to the deep fascia. Next, I incised the fascia along the length of the inguinal canal to the external ring. I then carefully identified the ilioinguinal nerve and sharply divided. Once this was complete, I bluntly dissected the shelving edge of the inguinal ligament down towards the pubic tubercle. Here, I encircled all cord structures with a [place] drain. Next, I began dissecting the specific cord structures. Great care was taken to spare the vas deferens and the blood supply to the testicle. Next, I isolated the hernia sac from the other inguinal structures. I reduced it back to its normal anatomic position. I then used a large Bard PerFix light mesh plug to obliterate the defect at the internal ring. I fixed in place with interrupted Prolene stitches. Next, I buttressed the posterior floor of the inguinal canal with a large mesh patch. I started by fixing it to the pubic tubercle. Next, I used Prolene sutures to affix it to the shelving edge of the inguinal ligament and the conjoined tendon. Laterally I tacked it to the internal oblique fascia and reconstructed an internal ring without any strain on the cord structures. Once this was complete, I irrigated the surgical field. It appeared hemostatic. I then closed the anterior portion of the fascia to reconstruct the front wall of the inguinal canal. I did this with interrupted Vicryl stitches. Once again, I irrigated the surgical field and inspected for hemostasis. Finally, I approximated the superficial fascia and the deep layers of the skin with absorbable suture. Skin was closed with running subcuticular stitches. Bandages were applied, the patient was awakened and transferred to the recovery unit. Date of Procedure: 02/28/25
--- NOTE | 2025-02-27 18:16 | ANES.PREOP_ITS ---
General Info Date of Service Date Performed: 02/28/25 Height: 5 ft 6 in Weight: 60.951 kg Body Mass Index (BMI): 21.7 Surgical Procedure: Operation Date: 02/28/25 08:10 Proposed Procedure Side Surgeon p Herniorrhaphy Inguinal w/Mesh Right Hermelindo Oneill MD Meds Allergies and Home Medications Allergies Allergy/AdvReac Type Severity Reaction Status Date / Time gabapentin AdvReac Intermediate went Verified 02/28/25 07:23 crazy on it pregabalin AdvReac Intermediate Agitation Verified 02/28/25 07:23 tramadol AdvReac Intermediate Agitation Verified 02/28/25 07:23 Home Medication ?Medication ?Instructions ?Recorded omeprazole magnesium 20 mg 40 mg PO DAILY 12/07/12 tablet,delayed release (Prilosec OTC) morphine 15 mg immediate release 15 mg PO TID 12/10/15 tablet albuterol 90 mcg/actuation aerosol 90 mcg inhalation A S DIRECTED 05/13/22 inhaler ibuprofen 800 mg tablet 800 mg PO TID 12/09/24 sildenafil 100 mg tablet 100 mg PO DAILY PRN 12/09/24 Current Visit Medications: Current Medications Generic Name Dose Route Start Last Admin Trade Name Freq PRN Reason Stop Dose Admin Acetaminophen 1,000 mg 02/28/25 06:00 Acetaminophen 500 Mg Tab PO 02/28/25 23:59 PREOP CHERRIE Celecoxib 200 mg 02/28/25 06:00 Celecoxib 200 Mg Cap PO 02/28/25 23:59 PREOP CHERRIE Hydromorphone HCl 0.2 mg 02/27/25 18:10 Hydromorphone 2 Mg/Ml Syr IVP 03/29/25 18:09 Q1H PRN PRN Ringer's Solution 1,000 mls @ 80 mls/hr 02/28/25 06:00 IV 02/28/25 23:59 INFUSION CHERRIE Cefazolin Sodium/Dextrose 2 gm in 50 mls @ 100 mls/hr 02/28/25 06:00 Ancef Duplex IVPB 02/28/25 23:59 PREOP CHERRIE IV Miscellaneous Supplies 1 each 02/28/25 06:00 Iv Access IV 02/28/25 23:59 DIRECTED CHERRIE Sodium Chloride 0 ml 02/28/25 06:00 Normal Saline Flush 10 Ml Syr IV 02/28/25 23:59 PRN PRN Sodium Chloride 0 ml 02/28/25 06:00 Normal Saline 10 Ml Vial IJ 02/28/25 23:59 DIRECTED PRN Sterile Water 0 ml 02/28/25 06:00 Water,Injection,Sterile 10 Ml Vial IJ 02/28/25 23:59 DIRECTED PRN PFSH Active Problems Active Problems: Problem Status Onset Code Left rotator cuff tear Acute M75.102 Injury of right hand Acute S69.91XA Arthritis of left glenohumeral joint Acute M19.012 Left carpal tunnel syndrome Acute G56.02 Prediabetes Acute R73.03 Hypertension Chronic I10 Medical History Medical History Essential hypertension Hemorrhoids Right inguinal hernia (~11/2024) Urinary outflow obstruction Erectile dysfunction Former smoker COPD (chronic obstructive pulmonary disease) Depression Renal calculus Chronic pain syndrome GERD (gastroesophageal reflux disease) Hyperlipidemia Adjustment disorder Spinal stenosis Surgical History Surgical History H/O colonoscopy Tobacco Smoking/Tobacco Use Status: Former Tobacco Use Alcohol Alcohol Intake: never Substance Use Substance use: Occasionally Substance use type: marijuana Vital Signs and Lab Results Vital Signs Most Recent Vital Signs in EMR: Temp Pulse Resp BP Pulse Ox 36.6 C 70 18 135/104 H 97 02/28/25 07:15 02/28/25 07:15 02/28/25 07:15 02/28/25 07:15 02/28/25 07:15 Imaging and Studies Imaging and Studies Study information below may be from another EMR and interpreted by another provider. Please see original notes in EMR for more complete details. Pulmonary Function Summary: 09/29/2015: INTERPRETATION SPIROMETRY: Spirometry shows no evidence of obstructive airways disease. There is no bronchodilator testing carried out. LUNG VOLUMES: Lung volumes show no evidence of restriction. DIFFUSION CAPACITY: Normal. AIRWAY RESISTANCE: Normal. IMPRESSION: Overall normal pulmonary function study. Clinical correlation recommended. Anesthesia Assessment and Plan Anesthesia History Personal History: No History of Anesthesia Complications Family History: No Family History of Anesthesia Complications Exercise Tolerance Exercise Tolerance: Metabolic Equivalents>4 Cardiac & Pulmonary Exam Cardiac Exam: Normal S1/S2 Heart Sounds Pulmonary Exam: Clear Bilateral Breath Sounds Implantable Cardiac Device Does patient have a Pacemaker or an ICD?: No Airway Exam Known Difficult Airway: No Mallampati Class: 1 Mouth Opening: Normal (> 3cm) Thyromental Distance: Greater than 3 cm Neck Range of Motion: Full ROM Neck Circumference: Normal Teeth Condition: Removable Dentures/Plates Upper and Edentulous ASA Classification ASA Score: ASA 2 Emergency Case?: No NPO Status NPO Status: NPO Clears >2 hours, Solids >8 hours Anesthesia Plan Resuscitation Status: Full Code Anesthesia Technique: General Anesthesia Airway Planned: LMA Pain Management: Surgeon and patient request nerve block Monitors Used: Standard Monitors Preoperative Comments:: 65 yo male for hernia repair. Sig PMHx: HTN (no meds, states checks at home and runs 120/), COPD (albuterol. breathing feels good), GERD (omeprazole. no reflux with med. sleeps HOB flat.), chronic pain, depression, adjustment disorder, spinal stenosis. former smoker. Previous Anes: - shoulder, glide 3 grade 1, no issues.
[2025-02-27 18:19] VITALS: BMI 21.7
[2025-02-28] VITALS (48 sets, daily range): BP systolic 135–243; BP diastolic 83–158; PULSE 41–70; RESP 7–19; TEMP 36.4–36.6; O2SAT 97–100
[2025-02-28] MEDS: Acetaminophen 500 MG TAB 1000 MG PO (07:35)
[2025-02-28] MEDS: Celecoxib 200 MG CAP PO (07:35)
[2025-02-28] MEDS: Lactated Ringers 1,000 ML 80 ML IV (07:37)
[2025-02-28] MEDS: ceFAZolin 2 GM/50 ML BAG IVPB (08:14)
[2025-02-28] MEDS: Bupivacaine 0.5% Pres-Free W/EPI 30 ML VIAL (08:37)
--- NOTE | 2025-02-28 08:39 | W.ANESNERVE ---
Nerve Block Single Injection Procedure Date and Time Date Performed: 02/28/25 Procedure Start: 08:20 Location Where Procedure Performed Procedure Location: Operating Room Procedure Stop: 08:24 Reason Performed: Postoperative Analgesia Requesting Provider: Hermelindo Oneill Timeout Performed Timeout Performed: Yes Monitoring Used ECG, Blood Pressure and SpO2 Sterility Sterility: Hand Hygiene, Surgical Cap, Surgical Mask, Sterile Gloves and Chlorhexidine Sedation Given During Procedure Sedation Given (Indicate Dose Given): No Sedation given Patient Mental Status Patient Mental Status: Performed under general anesthesia Nerve Block 1st Nerve Block: Laterality: Right Block Type: TAP Unilateral Ultrasound Image Saved?: Yes Needle / Catheter Used: 100mm SonoPlex II Local Anesthetic Bolus (Indicate Dose Given): Bupivacaine 0.375% Dose:: 12 mL and Exparel Dose:: 7 mL Additives (Indicate Dose Given): None Ultrasound: Sterile probe cover and gel used Nerve Stimulator: Not Used Paresthesia: None Procedure Tolerated: No Complications Procedure Outcome: Successful Performed By: Blair Stauffer
--- NOTE | 2025-02-28 09:54 | W.ANESPOSTOP ---
Postoperative Evaluation Date, Time and Location Date Performed: 02/28/25 Time Performed: 09:54 Patient Location: PACU Vital Signs Most Recent Imported Vital Signs: Most Recent Vital Signs Temp Pulse Resp BP Pulse Ox 36.5 C 70 18 135/104 H 97 02/28/25 09:33 02/28/25 07:15 02/28/25 07:15 02/28/25 07:15 02/28/25 07:15 Pain Score Most Recent Pain Score: Most Recent Pain Score Pain Level 0 02/28/25 09:43 Assessment Mental Status: Awake (Alert & Oriented to Patient Baseline) Airway and Respiratory Function: Patent airway with normal (patient baseline) respiratory exam Cardiovascular Function: Hemodynamically Stable (BP elevated, 200/100, minimal pain, labatelol ordered) Hydration Status: Adequately Hydrated Nausea & Vomiting: No Nausea or Vomiting Pain: Pain is tolerable per patient Peripheral Nerve Block: Regional nerve block not resolved at time of post operative discharge
[2025-02-28] MEDS: Labetalol 100 MG/20 ML VIAL 10 MG IVP (10:00)
[2025-02-28] MEDS: fentaNYL 100 MCG/2 ML VIAL IVP ×2 (10:02→10:15)
[2025-02-28] MEDS: HYDROmorphone 2 MG/ML SYR IVP (10:33)
[2025-02-28] MEDS: hydrALAZINE 20 MG/ML VIAL 2.5 MG IVP (10:46)
== END 2025-02-28 12:15 | disposition home or self-care (01) ==
LOC: SUR 06:58
PROVIDERS: PCP Family Medicine; Visit Provider Surgery
PROC: (CPT 49505; principal; 2025-02-28 08:00)
DX: K40.90 Unilateral inguinal hernia, without obstruction or gangrene, not specified as recurrent (principal); I10 Essential (primary) hypertension; J44.9 Chronic obstructive pulmonary disease, unspecified; K21.9 Gastro-esophageal reflux disease without esophagitis
CPT/HCPCS: 49505; 64486; C1781; J0360; J0665; J0666; J0690; J1100; J1171; J1920; J2405; J2704; J3010; J3475

== ENCOUNTER → 2025-03-16 11:23 | Outpatient (BNVA) | payer MEDICARE, MEDICAID, SELFPAY | PROVIDERS: PCP Family Medicine; Referring Provider Family Medicine; Visit Provider Surgery | DX: Z48.815 Encounter for surgical aftercare following surgery on the digestive system (principal) | CPT/HCPCS: 99024 ==